=== PATIENT | male | born 1970 | race Caucasian/White ===

== ENCOUNTER 2017-07-14 08:33 | Emergency (ER) | payer SELFPAY ==
[2017-07-14] MEDS ORDERED: OFLOXACIN 0.3% SOLN PREPACK OPHT.BTL TAKEHOME ONE (08:54)
[2017-07-14 08:56] VITALS: BP 159/104; PULSE 65; RESP 16; TEMP 98.4; O2SAT 92
--- NOTE | 2017-07-14 09:05 | EDPHY ---
H & P Time Seen by Provider: 07/14/17 08:36 HPI/ROS: CHIEF COMPLAINT: Red eyes HISTORY OF PRESENT ILLNESS: 46-year-old male who notes that he developed mild conjunctival injection 4-5 days ago. Symptoms seemed much worse 3 days ago, with diffuse redness of both eyes and watery discharge. He began using and old eye drop medication that have been given to his daughter when she had pinkeye. He took this for 2 days and noticed very minimal improvement. This morning, when he woke, the eyes were once again quite red, swollen conjunctiva, and discharge with some bleeding. Patient denies any fevers or chills. He denies any cold, cough, or upper respiratory infection symptoms. No ear pain. He reports no changes to his vision. No headache. No nausea. No vomiting. No one else at home is ill with similar symptoms. Discharge has been watery and again slightly pink tinged this morning. REVIEW OF SYSTEMS: Aside from elements discussed in the HPI, a comprehensive 10-point review of systems was reviewed and is negative. PAST MEDICAL HISTORY: Patient denies. No prior history of eye difficulties, glaucoma, inflammatory conditions, Crohn's disease or inflammatory bowel disease , and no history of trauma. No history of allergies. SOCIAL HISTORY: Patient is . He is here with his . Visual Acuity: noted from Nurse's notes. Patient does not have his glasses with him. Visual acuity is 20/70, however patient's visual acuity with a near chart is normal. Focused examination of the both eyes. Eyelid: No edema, erythema or swelling. Pupils: 4 mm bilaterally. Round and reactive to light, EOMI. No pain with extraocular movements. Conjunctivae: Significant conjunctival injection bilaterally with edema of the conjunctiva noted. Clear watery discharge. No patella noted on the upper or lower palpebra conjunctiva. Perilimbic sparing. Skin: No proptosis, no periorbital erythema or swelling, no vesicles. Smoking Status: Never smoked Constitutional: Initial Vital Signs Temperature (C) 36.9 C 07/14/17 08:37 Heart Rate 65 07/14/17 08:37 Respiratory Rate 16 07/14/17 08:37 Blood Pressure 159/104 H 07/14/17 08:37 O2 Sat (%) 92 07/14/17 08:37 O2 Delivery Mode Room Air Allergies/Adverse Reactions: No Known Allergies Allergy (Verified 07/14/17 08:37) Home Medications: Medication Instructions Recorded Albuterol 11/30/15 Celexa 11/30/15 Htn Med Unknown 07/14/17 MDM/Departure - MDM Medications Given: Discontinued Medications Ofloxacin (Ocuflox 0.3% Opht Drops Prepack) 1 btl LATOYA EDNOW ONE Stop: 07/14/17 08:55 Last Admin: 07/14/17 09:15 Dose: 1 btl ED Course/Re-evaluation: 46-year-old male presenting with significant conjunctival injection, hyperemia, a hint of edema on the conjunctiva, and perilimbic sparing. No other associated symptoms of concern. No fever. No greenish discharge or color discharge. No trauma. No visual changes. No pain. Does not reports significant itching sensation. Suspect keratoconjunctivitis, or pinkeye. Patient however will be placed on ofloxacin eyedrops. He was also encouraged to use a topical decongestant. He will follow up with his primary care physician or with the base manager on Sunday if he is not significantly improved. Differential Diagnosis: Differential diagnosis for the patient's presenting complaints includes corneal abrasion, conjunctivitis, iritis, hordeolum, chalazion, cellulitis, periorbital cellulitis, glaucoma, and contusion. - Depart Disposition: Home, Routine, Self-Care Clinical Impression: Acute conjunctivitis of both eyes Qualifiers: Acute conjunctivitis type: unspecified Qualified Code(s): H10.33 - Unspecified acute conjunctivitis, bilateral Condition: Good Instructions: Conjunctivitis (ED) Additional Instructions: Please begin using the antibiotic eyedrops as directed. Ofloxacin Opthalmic Solution 1-2 drops every 2-3 hours for the next 24 hr, then 1-2 drops every 4-6 hours for the next 4 days. I would recommend you obtain an [id number] decongestant to help with the swelling and redness. Several are listed below. Visine (tetrahydrozoline HCl 0.05%), Visine L.R. (oxymetazoline HCL 0.25%) and Clear Eyes (naphazoline HCl 0.12%). Okay to take Tylenol or ibuprofen as needed for eye discomfort. Please follow up with the eye doctor is listed below, or with your base manager/seismograph observer if you're not significantly improved by Sunday. Return to the emergency department or seek care urgently if you notice the vision is diminishing, he developed a fever, redness or swelling of the upper or lower eyelids, increased pain, or other concerns. Referrals: Vinay Fernandez MD [Primary Care Provider] - As per Instructions Brittny Reyes MD [Medical Doctor] - As per Instructions
== END 2017-07-14 09:20 | disposition home or self-care (01) ==
LOC: CED 08:33
DX: H10.33 Unspecified acute conjunctivitis, bilateral (principal)